=== PATIENT | female | born 1985 | race Hispanic/Latino ===

== ENCOUNTER 2020-02-18 12:57 | Emergency (ER) | payer BC, OTHER ==
[2020-02-18] MEDS ORDERED: IBUPROFEN 800 MG TAB ONE (13:43)
== END 2020-02-18 15:21 | disposition home or self-care (01) ==
LOC: EDH 12:57
DX: M79.622 Pain in left upper arm (principal); M54.2 Cervicalgia; M54.6 Pain in thoracic spine; Z98.890 Other specified postprocedural states; Z98.51 Tubal ligation status; V49.49XA Driver injured in collision with other motor vehicles in traffic accident, initial encounter; Y93.89 Activity, other specified; Y92.89 Other specified places as the place of occurrence of the external cause; Y99.8 Other external cause status
CPT/HCPCS: 72125; 73060

== ENCOUNTER 2022-12-13 23:02 | Emergency (ER) | payer BC, OTHER ==
[~2022-12-13] VITALS: Ht 160 cm; Wt 91.6 kg
[2022-12-13 23:03] VITALS: BP 146/82
== END 2022-12-14 02:07 | disposition left against medical advice (07) ==
LOC: EDH 23:02
DX: R10.9 Unspecified abdominal pain (principal); Z53.21 Procedure and treatment not carried out due to patient leaving prior to being seen by health care provider
CPT/HCPCS: 99281